=== PATIENT | female | born 1950 | race Caucasian/White ===

== ENCOUNTER 2017-01-18 16:38 | Emergency (ER) | payer MEDICARE, OTHER ==
[~2017-01-18] VITALS: Ht 162.6 cm; Wt 93.7 kg
[2017-01-18] MEDS ORDERED: VENL75TA PO (17:10)
[2017-01-18] MEDS ORDERED: MELO-184 PO (17:10)
[2017-01-18 17:59] LABS: BLOOD UREA NITROGEN 18 mg/dL (7-18)
[2017-01-18 18:01] LABS: IS PT STATUS REG ER OR PRE ER? YES
[2017-01-18 19:12] VITALS: BP 114/72
== END 2017-01-18 19:38 | disposition home or self-care (01) ==
LOC: ED 19:01
DX: R00.2 Palpitations (principal); R07.89 Other chest pain
CPT/HCPCS: 36415; 71010; 80048; 82040; 83735; 84439; 84443; 84484; 85025; 93005; 99285

== ENCOUNTER 2018-10-18 03:39 | Inpatient (IN) | payer MEDICARE ==
[~2018-10-18] VITALS: Ht 162.6 cm; Wt 73.9 kg
[~2018-10-18 03:39] MED LIST: MELO15TA24 PO; VENL75TA PO
[2018-10-18] MEDS ORDERED: SODIUM CHLORIDE 0.9% 1,000 ML IV ONE (03:53)
--- NOTE | 2018-10-18 03:55 | NUR ---
68 Y/O FEMALE BIB [facility] AFTER EXPERIENCING A MGLF AT HOME. PT WAS GETTING OUT OF BED WHEN SHE TRIPPED AND FELL. SHE IS C/O RIGHT HIP/UPPER LEG PAIN. EMS STATE THE PT WAS IN SIGNIFICANT PAIN UPON THEIR ARRIVAL. SHE DENIES STRIKING HER HEAD OR ANY LOC. DOES NOT TAKE ANY ANTI COAGULANTS. DEFORMITY AND OUTWARD ROTATION WITH SHORTENING NOTED TO THE RIGHT LOWER EXTREMITY. PULSES PRESENT, PT FEELS SENSATION HOWEVER UNABLE TO MOVE FOOT. EMS ESTABLISHED IV, ADMINISTERED A TOTAL OF 150MCG OF FENTANYL, AND 2MG OF VERSED FOR PAIN CONTROL. UPON ARRIVAL TO THE ER, THE PT IS CAOX4 WITH A GCS OF 15, C/O SPASMING IN HER LEG. STATES PAIN IS OK IF SHE IS NOT MOVING. PT PLACED ON WAFFLE MATTRESS. ALL MONITORING EQUIPMENT APPLIED. SINUS RHYTHM ON THE MONITOR WITH OCCASIONAL PVCS NOTED (PT HAS A HX OF PVCS). ALL VITALS STABLE. MEDICAL STUDENT AT BEDSIDE EVALUATING PT. CALL LIGHT WITHIN REACH. PT PLACED IN POSITION OF COMFORT.
[2018-10-18] MEDS ORDERED: SODIUM CHLORIDE FLUSH 10ML SYR IVF ONE (04:00)
[2018-10-18] MEDS ORDERED: PLEASE ENTER ALLERGIES MC SCH (04:00)
[2018-10-18] MEDS ORDERED: MORPHINE SULFATE 4 MG/ML, 1ML IVPush PRN (04:00)
--- NOTE | 2018-10-18 04:00 | NUR ---
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 PT STATES SHE CALLED THE HOME HEALTH NURSE AT [facility] TO COME BE WITH HIM UNTIL HER SON GOT THERE AT 6AM. WE DID CALL AND CONFIRM THAT THE NURSE IS THERE WITH HER .
[2018-10-18] MEDS ORDERED: MORPHINE SULFATE 4 MG/ML, 1ML ONE ×2 (04:09→09:09)
--- NOTE | 2018-10-18 04:15 | NUR ---
PT IN XRAY
[2018-10-18] MEDS ORDERED: ONDANSETRON 2MG/ML, 2ML ONE (04:26)
--- NOTE | 2018-10-18 04:32 | NUR ---
SHORTLY AFTER BEING ADMINISTERED IV ZOFRAN, THE PT BEGAN EXPERIENCING REDNESS AND ITCHING UP HER ARM WITH HIVES.
[2018-10-18] MEDS ORDERED: DIPHENHYDRAMINE 50 MG/ML, 1ML ONE ×3 (04:36→10:48)
--- NOTE | 2018-10-18 04:45 | NUR ---
PT MEDICATED PER [facility] FOR MUSCLE SPASMS, 5 RIGHTS ADDRESSED
--- NOTE | 2018-10-18 04:50 | NUR ---
PT BELONGINGS INCLUDE A [place] BLANKET, PURSE, CELL PHONE. PT REQUESTING GLASSES BUT PER EMS, THEY WERE NOT TRANSPORTED WITH HER
--- NOTE | 2018-10-18 04:58 | NUR ---
REPORT TO ELIZABET FULLER.
[2018-10-18] MEDS ORDERED: ONDANSETRON 2MG/ML, 2ML IVPush ONE (05:00)
[2018-10-18] MEDS ORDERED: DIPHENHYDRAMINE 50 MG/ML, 1ML IVPush ONE (05:00)
[2018-10-18] MEDS ORDERED: DIAZEPAM 5 MG/ML, 2ML IVPush ONE (05:00)
[2018-10-18 05:01] LABS: BASOPHILS # (AUTO) 0.05 x10^3/uL (0-0.1); BASOPHILS % (AUTO) 0 % (0-1); EOSINOPHILS # (AUTO) 0.22 x10^3/uL (0-0.4); EOSINOPHILS % (AUTO) 2 % (1-7); LYMPHOCYTES # (AUTO) 1.47 x10^3/uL (1-3.4); LYMPHOCYTES % (AUTO) 13 % (22-44); MD NO; MEAN CORPUSCULAR HEMOGLOBIN 32.3 pg (27.0-34.8); MEAN CORPUSCULAR HGB CONC 34.2 g/dL (32.4-35.8); MEAN CORPUSCULAR VOLUME 94.6 fL (80-100); MEAN PLATELET VOLUME 9.9 fL (7.4-10.4); MONOCYTES # (AUTO) 0.63 x10^3/uL (0.2-0.8); MONOCYTES % (AUTO) 6 % (2-9); NEUTROPHILS # (AUTO) 8.76 x10^3/uL (1.8-6.8); NEUTROPHILS % (AUTO) 79 % (42-75); PLATELET COUNT 306 x10^3/uL (130-400); RED BLOOD COUNT 4.72 x10^6/uL (3.82-5.3); RED CELL DISTRIBUTION WIDTH 14.7 % (9.6-15.2)
[2018-10-18 05:14] LABS: ALBUMIN 3.4 g/dL (3.4-5.0); ANION GAP 6 mmol/L (5-15); CALCIUM 8.4 mg/dL (8.5-10.1); CHLORIDE 111 mmol/L (98-107); CREATININE 0.67 mg/dL (0.55-1.02)
[2018-10-18] MEDS ORDERED: POLYETHYLENE GLYCOL 17 GM PACKET PO PRN (05:30)
[2018-10-18] MEDS ORDERED: morphine SULFATE 10 MG/ML, 1ML IVPush PRN (05:30)
[2018-10-18] MEDS ORDERED: hydrALAzine 20 MG/ML, 1ML IVPush PRN (05:30)
[2018-10-18] MEDS: SODIUM CHLORIDE 0.9% 1,000 ML IV SCH ×2 (05:51→19:51)
[2018-10-18 06:30] VITALS: BP 143/92
[2018-10-18 08:20] VITALS: BP 126/63
[2018-10-18] MEDS ORDERED: METHOCARBAMOL 1000MG/10 ML IV ONE (09:00)
[2018-10-18] MEDS: MORPHINE SULFATE 4 MG/ML, 1ML IVPush PRN ×2 (09:11→14:53)
[2018-10-18] MEDS ORDERED: METHOCARBAMOL 1,000 MG in DEXTROSE 5% 100 ML IV ONE (10:00)
[2018-10-18] MEDS ORDERED: KETOROLAC 30 MG/1 ML ONE (10:07)
[2018-10-18] MEDS ORDERED: KETOROLAC 30 MG/1 ML IVPush PRN ×2 (10:30)
[2018-10-18] MEDS: DIPHENHYDRAMINE 50 MG/ML, 1ML IVPush PRN (10:49)
[2018-10-18 12:34] VITALS: BP 97/58
[2018-10-18] MEDS ORDERED: MIDAZOLAM 1 MG/ML, 2ML ONE (15:47)
[2018-10-18] MEDS ORDERED: FENTANYL PF 250 MCG/5ML ONE (15:47)
[2018-10-18] MEDS ORDERED: SUGAMMADEX 200 MG/2 ML IVPush ONE (15:59)
[2018-10-18] MEDS ORDERED: MIDAZOLAM 1 MG/ML, 5ML ONE (15:59)
[2018-10-18] MEDS ORDERED: CEFAZOLIN 1,000 MG ONE ×2 (15:59→16:29)
[2018-10-18] MEDS ORDERED: ROCURONIUM 10MG/ML,5ML ONE (16:29)
[2018-10-18] MEDS ORDERED: PROPOFOL 10 MG/ML, 20ML ONE (16:29)
[2018-10-18] MEDS ORDERED: DEXAMETHASONE 4 MG/ML, 1ML ONE (16:29)
[2018-10-18] MEDS ORDERED: LIDOCAINE-MPF 2% ,5ML ONE (16:29)
[2018-10-18] MEDS ORDERED: METOCLOPRAMIDE 5 MG/ML, 2ML ONE (16:29)
[2018-10-18] MEDS ORDERED: HALOPERIDOL 5 MG/ML IV PRN (16:30)
[2018-10-18] MEDS ORDERED: PROMETHAZINE 25 MG/ML, 1ML IV PRN (16:30)
[2018-10-18] MEDS ORDERED: OXYcodone 5 MG/5 ML ORAL.SOL UDC PO PRN (16:30)
[2018-10-18] MEDS ORDERED: FENTANYL PF 100 MCG/2ML IV PRN (16:30)
[2018-10-18] MEDS ORDERED: MEPERIDINE/PF 25MG/0.5ML IVPush PRN (16:30)
[2018-10-18] MEDS ORDERED: ACETAMINOPHEN 325 MG TABLET PO PRN (16:30)
[2018-10-18] MEDS ORDERED: FENTANYL PF 100 MCG/2ML ONE (17:02)
[2018-10-18] MEDS ORDERED: HYDROmorphone 2 MG/ML, 1ML ONE (17:02)
[2018-10-18] MEDS ORDERED: OXYcodone 5 MG/5 ML ORAL.SOL UDC ONE (17:03)
[2018-10-18] MEDS: HYDROmorphone 2 MG/ML, 1ML IVPush PRN ×2 (17:21→17:28)
[2018-10-18] MEDS ORDERED: ONDANSETRON 2MG/ML, 2ML IV PRN (19:00)
[2018-10-18] MEDS ORDERED: HYDROmorphone 2 MG/ML, 1ML IVPush PRN (19:00)
[2018-10-18] MEDS ORDERED: OXYcodone/APAP 5/325MG TABLET PO PRN (19:00)
[2018-10-18 19:23] VITALS: BP 101/66
[2018-10-18] MEDS: VENLAFAXINE 75MG TABLET PO SCH (21:00)
[2018-10-18] MEDS ORDERED: VENLAFAXINE 37.5MG TABLET ONE (22:35)
[2018-10-18] MEDS: KETOROLAC 30 MG/1 ML IV SCH (22:40)
[2018-10-18] MEDS: ASPIRIN 81 MG TABLET EC PO SCH (22:40)
[2018-10-18] MEDS: SODIUM CHLORIDE FLUSH 10ML SYR IVF SCH (22:41)
[2018-10-19] MEDS: CEFAZOLIN PMX 2GM/50ML 50 ML IVPB SCH ×2 (00:18→07:34)
[2018-10-19 00:23] VITALS: BP 105/62
[2018-10-19] MEDS ORDERED: METOCLOPRAMIDE 5 MG/ML, 2ML IV PRN (01:30)
[2018-10-19 04:50] VITALS: BP 120/65
[2018-10-19 05:19] LABS: CALCIUM 7.9 mg/dL (8.5-10.1); CHLORIDE 110 mmol/L (98-107)
[2018-10-19 05:25] LABS: ALANINE AMINOTRANSFERASE 20 U/L (12-78); ALBUMIN 2.6 g/dL (3.4-5.0); ALKALINE PHOSPHATASE 85 U/L (45-117); ANION GAP 5 mmol/L (5-15); BASOPHILS # (AUTO) 0.01 x10^3/uL (0-0.1); BASOPHILS % (AUTO) 0 % (0-1); BILIRUBIN,TOTAL 0.3 mg/dL (0.2-1.0); CREATININE 0.71 mg/dL (0.55-1.02); EOSINOPHILS % (AUTO) 0 % (1-7); LYMPHOCYTES # (AUTO) 0.67 x10^3/uL (1-3.4); LYMPHOCYTES % (AUTO) 6 % (22-44); MD NO; MEAN CORPUSCULAR HEMOGLOBIN 31.8 pg (27.0-34.8); MEAN CORPUSCULAR HGB CONC 33.3 g/dL (32.4-35.8); MEAN CORPUSCULAR VOLUME 95.4 fL (80-100); MEAN PLATELET VOLUME 10.3 fL (7.4-10.4); MONOCYTES # (AUTO) 1.16 x10^3/uL (0.2-0.8); MONOCYTES % (AUTO) 10 % (2-9); NEUTROPHILS % (AUTO) 84 % (42-75); PLATELET COUNT 282 x10^3/uL (130-400); RED BLOOD COUNT 3.54 x10^6/uL (3.82-5.3); RED CELL DISTRIBUTION WIDTH 14.5 % (9.6-15.2); TOTAL PROTEIN 5.4 g/dL (6.4-8.2)
[2018-10-19 06:44] VITALS: BP 102/58
[2018-10-19] MEDS ORDERED: VENLAFAXINE 37.5MG TABLET ONE (07:31)
[2018-10-19] MEDS: KETOROLAC 30 MG/1 ML IV SCH ×2 (07:34→15:17)
[2018-10-19] MEDS: ENOXAPARIN 40 MG/0.4 ML SQ SCH (07:35)
[2018-10-19] MEDS: ASPIRIN 81 MG TABLET EC PO SCH ×2 (07:35→19:48)
[2018-10-19] MEDS: VENLAFAXINE 75MG TABLET PO SCH ×2 (07:35→19:38)
[2018-10-19] MEDS: SODIUM CHLORIDE FLUSH 10ML SYR IVF SCH ×2 (07:36→19:49)
[2018-10-19] MEDS: SODIUM CHLORIDE 0.9% 1,000 ML IV SCH (11:21)
[2018-10-19] MEDS: HYDROcodone/APAP 7.5-325MG/15ML UDC PO PRN ×3 (12:36→20:46)
[2018-10-19 14:27] VITALS: BP 125/63
[2018-10-19] MEDS ORDERED: KETOROLAC 30 MG/1 ML ONE (15:16)
[2018-10-19] MEDS: DIPHENHYDRAMINE 50 MG/ML, 1ML IVPush PRN (19:48)
[2018-10-19 19:56] VITALS: BP 114/68
[2018-10-20] MEDS: SODIUM CHLORIDE 0.9% 1,000 ML IV SCH ×2 (01:10→14:27)
[2018-10-20 01:12] VITALS: BP 102/53
[2018-10-20] MEDS: VENLAFAXINE 75MG TABLET PO SCH (01:24)
[2018-10-20] MEDS: DIPHENHYDRAMINE 50 MG/ML, 1ML IVPush PRN ×3 (01:30→21:18)
[2018-10-20 01:32] VITALS: BP 116/65
[2018-10-20] MEDS: HYDROcodone/APAP 7.5-325MG/15ML UDC PO PRN ×3 (05:58→18:30)
[2018-10-20] MEDS ORDERED: VENLAFAXINE 37.5MG TABLET ONE (08:28)
[2018-10-20] MEDS: ENOXAPARIN 40 MG/0.4 ML SQ SCH (08:31)
[2018-10-20] MEDS: ASPIRIN 81 MG TABLET EC PO SCH ×2 (08:31→21:18)
[2018-10-20] MEDS: SODIUM CHLORIDE FLUSH 10ML SYR IVF SCH ×2 (08:32→21:18)
[2018-10-20 08:37] VITALS: BP 112/68
[2018-10-20] MEDS: MELOXICAM 15 MG TABLET PO PRN (10:26)
[2018-10-20] MEDS ORDERED: ENOX40SY4 SQ (12:54)
[2018-10-20 14:21] VITALS: BP 118/70
[2018-10-20 18:51] VITALS: BP 118/66
[2018-10-21] MEDS: SODIUM CHLORIDE 0.9% 1,000 ML IV SCH ×2 (03:47→17:00)
[2018-10-21] MEDS: HYDROcodone/APAP 7.5-325MG/15ML UDC PO PRN ×2 (03:59→12:25)
[2018-10-21 04:05] VITALS: BP 110/62
[2018-10-21 08:57] VITALS: BP 101/60
[2018-10-21] MEDS: ENOXAPARIN 40 MG/0.4 ML SQ SCH (09:26)
[2018-10-21] MEDS: ASPIRIN 81 MG TABLET EC PO SCH ×2 (09:26→20:32)
[2018-10-21] MEDS: SODIUM CHLORIDE FLUSH 10ML SYR IVF SCH ×2 (09:27→20:32)
[2018-10-21] MEDS ORDERED: MAGNESIUM HYDROXIDE 8%, 30ML UDC ONE (09:35)
[2018-10-21] MEDS ORDERED: MAGNESIUM HYDROXIDE 8%, 30ML UDC PO PRN (10:00)
[2018-10-21] MEDS: MELOXICAM 15 MG TABLET PO PRN (10:48)
[2018-10-21] MEDS ORDERED: BISACODYL 10 MG SUPP ONE (11:28)
[2018-10-21] MEDS ORDERED: BISACODYL 10 MG SUPP PR PRN (11:30)
[2018-10-21] MEDS ORDERED: MIDAZOLAM 1 MG/ML, 2ML ONE (12:07)
[2018-10-21] MEDS ORDERED: FENTANYL PF 250 MCG/5ML ONE (12:08)
[2018-10-21 13:46] VITALS: BP 104/62
[2018-10-21] MEDS ORDERED: PINK LADY ENEMA 490 ML BOTTLE PR STA (15:26)
[2018-10-21 19:03] VITALS: BP 111/71
[2018-10-21] MEDS: DIPHENHYDRAMINE 50 MG/ML, 1ML IVPush PRN (20:32)
[2018-10-22] MEDS: MELOXICAM 15 MG TABLET PO PRN (00:03)
[2018-10-22 02:37] VITALS: BP 124/68
[2018-10-22] MEDS: SODIUM CHLORIDE 0.9% 1,000 ML IV SCH (06:30)
[2018-10-22 07:40] VITALS: BP 105/71
[2018-10-22] MEDS ORDERED: PINK LADY ENEMA 490 ML BOTTLE PR ONE (08:00)
[2018-10-22] MEDS: ASPIRIN 81 MG TABLET EC PO SCH (08:11)
[2018-10-22] MEDS: SODIUM CHLORIDE FLUSH 10ML SYR IVF SCH (08:15)
[2018-10-22] MEDS: ENOXAPARIN 40 MG/0.4 ML SQ SCH (08:16)
[2018-10-22 12:21] VITALS: BP 126/75
[2018-10-22] MEDS ORDERED: OXYC1TAB7 PO (12:59)
[2018-10-22] MEDS ORDERED: HYDR-3240 PO (13:38)
== END 2018-10-22 14:32 | DRG 481 ==
LOC: ED 04:49 → EDIP 04:50 → 4NOR 05:15
PROVIDERS: ADMIT Family Medicine; ATTEND Family Medicine
PROC: 0QS636Z Reposition Right Upper Femur with Intramedullary Internal Fixation Device, Percutaneous Approach (ICD-10-PCS; principal; 2018-10-18 15:45)
PROC: 5A09357 Assistance with Respiratory Ventilation, Less than 24 Consecutive Hours, Continuous Positive Airway Pressure (ICD-10-PCS; 2018-10-22)
DX: S72.141A Displaced intertrochanteric fracture of right femur, initial encounter for closed fracture (principal); E44.0 Moderate protein-calorie malnutrition; Z68.28 Body mass index [BMI] 28.0-28.9, adult; W01.0XXA Fall on same level from slipping, tripping and stumbling without subsequent striking against object, initial encounter; Y93.89 Activity, other specified; Y92.038 Other place in apartment as the place of occurrence of the external cause; Y99.8 Other external cause status; D72.829 Elevated white blood cell count, unspecified; E86.0 Dehydration; F12.90 Cannabis use, unspecified, uncomplicated; G89.11 Acute pain due to trauma; K59.00 Constipation, unspecified; Z88.0 Allergy status to penicillin; Z88.8 Allergy status to other drugs, medicaments and biological substances
CPT/HCPCS: 36415; 71045; 76000; 80048; 80053; 82040; 85025; 93005; 99285; C1713; G0378; J0690; J1100; J1170; J1650; J1885; J2250; J2704; J3010; J3360; J1200; J2270; J2765; J2800; J7030